=== PATIENT | female | born 1965 ===

== ENCOUNTER 2016-06-17 06:09 | Day surgery (SDC) | payer OTHER ==
[2016-06-17 06:50] VITALS: BMI 32.2
[2016-06-17] MEDS ORDERED: Simethicone 40 mg/0.6 ml Liquid (30 ml) ONE (07:50)
[2016-06-17] MEDS ORDERED: Lidocaine Hydrochloride 5 ML INJ ONE (07:52)
[2016-06-17] MEDS ORDERED: Propofol 10 mg/ml Inj (20 ML) ONE ×2 (07:52→08:13)
[2016-06-17] MEDS ORDERED: Lactated Ringer's 1,000 ML IV SCH (08:00)
--- NOTE | 2016-06-17 08:01 | CP.SDSHP ---
Same Day Surgery H & P - History Proposed Procedure: colonoscopy Pre-Op Diagnosis: constipation. diverticulosis. screening for colon cancer - Previous Medical/Surgical History Endocrine/Metabolic: Thyroid Disease, Diabetes - Allergies Allergies: Allergies No Known Allergies Allergy (Verified 06/17/16 06:50) - Current Medications Current Medications: see med list - Physical Exam General Appearance: NAD Mental Status: Alert & Oriented x3 Heart: WNL Lungs: WNL GI: WNL - {Optional Preform as Required} Abdomen: WNL - Impression Impression: 50 year old female with h/o DM, hypothyroidism here for evaluation of constipation, screening colonoscopy Pt. Evaluated Today:Candidate for Anesthesia & Procedure: Yes - Date & Time Date: 06/17/16 Time: 08:00 Short Stay Discharge - Short Stay Discharge Admitting Diagnosis/Reason for Visit: DIVERTICULOSIS / CONSTIPATION / BILE DUCT DILATION Disposition: HOME/ ROUTINE
[2016-06-19 15:18] VITALS: RESP 18
[2016-06-19 15:26] VITALS: BP 104/51; PULSE 62; TEMP 98; O2SAT 98
== END 2016-06-17 10:30 | disposition home or self-care (01) ==
LOC: C.ENDO 06:09
PROVIDERS: ATTEND Internal Medicine Gastroenterology
DX: Z12.11 Encounter for screening for malignant neoplasm of colon (principal); D12.2 Benign neoplasm of ascending colon; D12.4 Benign neoplasm of descending colon; K63.89 Other specified diseases of intestine; K64.8 Other hemorrhoids; E11.9 Type 2 diabetes mellitus without complications
CPT/HCPCS: 45380; 45381; 45385; 82948; 88305; J2704; J7120

== ENCOUNTER 2016-06-28 09:39 | Emergency (ER) | payer OTHER ==
[2016-06-28 09:39] VITALS: BMI 32.2
[2016-06-28 09:47] VITALS: BP 117/74; PULSE 68; RESP 16; TEMP 97.4; O2SAT 98
[2016-06-28 10:40] LABS: RBC URINE < 1 /hpf (0-3); URINE BILIRUBIN NEGATIVE (NEGATIVE); URINE BLOOD NEGATIVE (NEGATIVE); URINE COLOR Straw (YELLOW); URINE GLUCOSE (UA) NORMAL (Normal); URINE KETONE NEGATIVE (NEGATIVE); URINE LEUKOCYTE ESTERASE NEG Leu/uL (Negative); URINE PROTEIN NEGATIVE (NEGATIVE); URINE UROBILINOGEN NORMAL mg/dL (0.2-1.0); WBC URINE < 1 /hpf (0-5)
--- NOTE | 2016-06-28 11:04 | C.PDOC ---
History Of Present Illness 50 yr old female presents to the ED for evaluation of bilateral low back pain for the past 3 days. Patient states the pain constant, nonradiating, and worsens with movement and walking. Patient denies trauma/falls, fever/chills, abdominal pain, dysuria/hematuria, nausea/vomiting/diarrhea, urinary/bowel incontinence, rash, sensory changes in extremities, or leg weakness. Time Seen by Provider: 06/28/16 09:51 Chief Complaint (Nursing): Back Pain History Per: Patient History/Exam Limitations: no limitations Onset/Duration Of Symptoms: Days (3) Current Symptoms Are (Timing): Still Present Quality Of Discomfort: "Pain" Severity: Moderate Exacerbating Factor(s): Movement, Other (Walking) Past Medical History Reviewed: Historical Data, Nursing Documentation, Vital Signs Vital Signs: Last Vital Signs Temp 97.4 F L 06/28/16 09:46 Pulse 68 06/28/16 09:46 Resp 16 06/28/16 09:46 BP 117/74 06/28/16 09:46 Pulse Ox 98 06/28/16 11:40 - Medical History PMH: Arthritis, Diabetes, Fractures (LEFT TIBIA), Hyperthyroidism, Hypothyroidism Surgical History: Cholecystectomy Family History: States: No Known Family Hx - Social History Hx Tobacco Use: No Hx Alcohol Use: No Hx Substance Use: No - Immunization History Hx Tetanus Toxoid Vaccination: No Hx Influenza Vaccination: No Hx Pneumococcal Vaccination: No Review Of Systems Except As Marked, All Systems Reviewed And Found Negative. Constitutional: Negative for: Fever, Chills Cardiovascular: Negative for: Chest Pain Respiratory: Negative for: Cough, Shortness of Breath Gastrointestinal: Negative for: Nausea, Vomiting, Abdominal Pain, Diarrhea Genitourinary: Negative for: Dysuria, Hematuria Musculoskeletal: Positive for: Back Pain (Bilateral low back pain) Skin: Negative for: Rash Physical Exam - Physical Exam Appears: Well, Non-toxic, In Acute Distress (Mild pain ) Skin: Warm, Dry, No Rash Head: Atraumatic, Normacephalic Eye(s): bilateral: Normal Inspection Oral Mucosa: Moist Neck: Normal, Normal ROM, No Midline Cervical Tenderness, No Paracervical Tenderness, No Step Off Deformity, Supple Cardiovascular: Rhythm Regular Respiratory: Normal Breath Sounds, No Rales, No Rhonchi, No Wheezing Gastrointestinal/Abdominal: Normal Exam, Bowel Sounds, Soft, No Tenderness, No Rebound Back: Normal Inspection, No CVA Tenderness, No Vertebral Tenderness, No Paraspinal Tenderness, Other ( icy hot patch on lumbar area) Extremity: Normal ROM, No Deformity, No Swelling Extremity: Bilateral: Atraumatic, Normal Color And Temperature, Normal ROM Pulses: Left Dorsalis Pedis: Normal, Right Dorsalis Pedis: Normal Neurological/Psych: Oriented x3, Normal Motor, Normal Sensation Gait: Steady ED Course And Treatment O2 Sat by Pulse Oximetry: 98 (RA) Pulse Ox Interpretation: Normal Progress Note: Urinalysis, Upreg ordered and reviewed. Patient given IM Toradol and PO Flexeril. Reevaluation Time: 11:40 Reassessment Condition: Improved (Patient reassessed, is resting comfortably and states she feele better. Patient ambulating normally in the ED. She was given Rx for Naprosyn and Flexeril, and was instructed to follow up with PMD/ clinic in 1-2 days. Patient undertsands she should return to ED if symptoms worsen.) Disposition Counseled Patient/Family Regarding: Studies Performed, Diagnosis, Need For Followup, Rx Given - Disposition Referrals: [facility] [Outside] Disposition: HOME/ ROUTINE Disposition Time: 11:40 Condition: STABLE Prescriptions: Cyclobenzaprine [Cyclobenzaprine HCl] 10 mg PO BID PRN #12 tab PRN Reason: pain/muscle Naproxen [Naprosyn Tab] 375 mg PO BID PRN #20 tab PRN Reason: pain Instructions: Acute Low Back Pain (ED) Print Language: ROMANIAN - POA Present On Arrival: None - Clinical Impression Clinical Impression: Lumbar sprain - Scribe Statement The provider has reviewed the documentation as recorded by the Roney Baez Provider Attestation: All medical record entries made by the Roney were at my direction and personally dictated by me. I have reviewed the chart and agree that the record accurately reflects my personal performance of the history, physical exam, medical decision making, and the department course for this patient. I have also personally directed, reviewed, and agree with the discharge instructions and disposition.
== END 2016-06-28 12:05 | disposition home or self-care (01) ==
LOC: C.ER 09:39
DX: S33.5XXA Sprain of ligaments of lumbar spine, initial encounter (principal); X58.XXXA Exposure to other specified factors, initial encounter; Y93.9 Activity, unspecified; Y92.9 Unspecified place or not applicable

== ENCOUNTER 2016-10-16 08:46 | Day surgery (SDC) | payer OTHER ==
[2016-10-09 08:58] VITALS: BMI 27.4
[2016-10-16] MEDS ORDERED: Bupivacaine-Epi 0.25%-1:200,000 PF Inj ONE ×2 (09:46→10:03)
[2016-10-16] MEDS ORDERED: Lidocaine 1% Inj (20ml) ONE ×2 (09:46→10:04)
[2016-10-16] MEDS ORDERED: ceFAZolin IV 1 gm in Dextrose 0 GM/0 ML BAG IVPB ONE (09:46)
[2016-10-16] MEDS ORDERED: ceFAZolin IV 2 gm in Dextrose 1 GM/50 ML BAG IVPB ONE (10:03)
[2016-10-16] MEDS ORDERED: Propofol 10 mg/ml Inj (20 ML) ONE (11:06)
[2016-10-16] MEDS ORDERED: Phenylephrine 10 mg/ml Inj ONE (11:23)
[2016-10-16] MEDS ORDERED: Neostigmine Methylsulfate 3mg/3ml Syringe IV ONE (12:02)
--- NOTE | 2016-10-16 12:58 | PCM.SURG1 ---
Surgeon's Initial Post Op Note - Surgeon's Notes Surgeon: Dr. Lamb Street Light Mechanic: Dr. Huang PGY3, Cinthya RINCON Type of Anesthesia: General Endo, Local Pre-Operative Diagnosis: umbilical incisional hernia Operative Findings: see op report Post-Operative Diagnosis: umbilical incisional hernia Operation Performed: laparoscopic umbilical incisional hernia repair with primary closure and mesh Specimen/Specimens Removed: hernia contents Estimated Blood Loss: EBL {In ML}: 10 Blood Products Given: N/A Drains Used: No Drains Post-Op Condition: Good Date of Surgery/Procedure: 10/16/16 Time of Surgery/Procedure: 12:58
[2016-10-16] MEDS ORDERED: Oxycodone/Acetaminophen 5/325 mg Tab PO PRN (12:59)
[2016-10-16] MEDS ORDERED: HYDROmorphone 0.5 mg/0.5 ml ISec IVP PRN (13:21)
[2016-10-16] MEDS ORDERED: Lactated Ringer's 1,000 ML IV ONE (14:20)
[2016-10-16 17:49] VITALS: BP 103/58; PULSE 67; RESP 20; TEMP 97.8; O2SAT 99
--- NOTE | 2016-10-17 04:40 | OP ---
PROCEDURE DATE: 10/16/2016 PREOPERATIVE DIAGNOSIS: Umbilical hernia. POSTOPERATIVE DIAGNOSES: 1. Incarcerated umbilical hernia. 2. Post infectious adhesion. PROCEDURE: 1. Laparoscopic incarcerated umbilical hernia repair with mesh. 2. Laparoscopic lysis of adhesion extensive. SURGEON: Dr. Lamb. CAR SALES REPRESENTATIVE: MCKENZIE Rodriguez and Sindhu Huang, PGY-3 resident. TYPE OF ANESTHESIA: General endotracheal tube anesthesia. ESTIMATED BLOOD LOSS: Around 10 mL. DRAINS: None. PATHOLOGY: Hernial sac and content was sent for pathology. COMPLICATIONS: None. INTRAOPERATIVE FINDINGS: 1. The patient had incarcerated omentum in the umbilical hernial site. 2. The patient also had lot of adhesions surrounding umbilicus as well as right upper quadrant due to the previous laparoscopic cholecystectomy. DESCRIPTION OF PROCEDURE: On intraoperative steps, this 50-year-old female who underwent laparoscopic cholecystectomy by other surgeon and the patient had umbilical hernia at umbilical incision port site and the patient was consented for the laparoscopic umbilical hernia repair with mesh, brought to the OR placed supine on the operating table. After induction of anesthesia, abdomen was prepped and draped in usual sterile fashion and left upper quadrant 5 mm incision was made and using Visiport technique peritoneal cavity was entered, pneumo was created and another 8 mm and 5 mm port was placed in left flank and left lower quadrant and grasper and dissector was introduced. The incarcerated omentum of large size as well as postoperative adhesion was lysed and omentum was reduced back into the peritoneal cavity and the dissection was continued to do lysis of adhesions surrounding the intraabdominal wall and after that hernial sac and content was resected and it was sent to the table for pathology and hernial defect was closed with transfascial #2 Ethibond suture and 9 cm mesh was placed and mesh was implanted with tacker and after proper implantation of the mesh, specimen was sent to the table for pathology and all the ports were taken out under vision, pneumo was deflated. The transfascial wound site was closed in 2 layers with 3-0 Vicryl and 4-0 Monocryl. All the port site was closed with 4-0 Monocryl and dry sterile dressing was applied. The patient tolerated the procedure well. Count of instrument was correct. There was no apparent complications. Alejo Lamb MD [facility]
== END 2016-10-16 17:55 | disposition home or self-care (01) ==
LOC: C.SDS 08:46
PROVIDERS: ATTEND Surgery Surgical Critical Care
DX: K42.0 Umbilical hernia with obstruction, without gangrene (principal); K43.0 Incisional hernia with obstruction, without gangrene
CPT/HCPCS: 49653; 82948; 88302; 88305; C1781; J0690; J1170; J2370; J2405; J2704; J2710; J3010; J7120

== ENCOUNTER 2017-07-05 10:35 | Emergency (ER) | payer OTHER ==
[2017-07-05 10:43] VITALS: BMI 32.8
[2017-07-05 12:15] LABS: BASO % 0.4 % (0.0-2.0); EOS # 0.1 K/uL (0.0-0.7); EOS % 0.8 % (0.0-4.0); HEMOGLOBIN 13.8 g/dL (11.0-16.0); LYMPH # 1.4 K/uL (1.0-4.3); LYMPH % 20.3 % (20.0-40.0); MEAN CELL VOLUME 89.6 fL (81.0-99.0); MEAN CORPUSCULAR HEMOGLOBIN 30.4 pg (27.0-31.0); MEAN PLATELET VOLUME 8.5 fL (7.2-11.7); MONO # 0.9 K/uL (0.0-0.8); MONO % 13.5 % (0.0-10.0); NEUT # 4.4 K/uL (1.8-7.0); RBC 4.55 Mil/uL (3.80-5.20); RED CELL DISTRIBUTION WIDTH 13.2 % (11.5-14.5); WHITE BLOOD COUNT 6.8 K/uL (4.8-10.8)
[2017-07-05 12:17] LABS: ALBUMIN 3.9 g/dL (3.5-5.0); ALT/SGPT 67 U/L (9-52); AST/SGOT 75 U/L (14-36); BLOOD UREA NITROGEN 5 mg/dL (7-17); CALCIUM 8.7 mg/dl (8.6-10.4); GFR AFRICAN-AMERICAN > 60; GFR NON-AFRICAN AMERICAN > 60
[2017-07-05 12:26] LABS: CK-MB 0.33 ng/mL (0.0-3.38)
[2017-07-05 12:38] LABS: INR 1.2; PROTHROMBIN TIME 13.6 SECONDS (9.7-12.2)
--- NOTE | 2017-07-05 12:59 | C.PDOC ---
History Of Present Illness 51-year-old female, PMhx includes Diabetes and hypothyroidism, presents to the emergence department with complaints of chest pain, cough and subjective fever, Patient denies nausea/vomiting, diarrhea, back pain, headache, shortness of breath or any other associated symptoms. No other complaints at this time. Time Seen by Provider: 07/05/17 10:51 Chief Complaint (Nursing): Chest Pain History Per: Patient History/Exam Limitations: no limitations Past Medical History Reviewed: Historical Data, Nursing Documentation, Vital Signs Vital Signs: Last Vital Signs Temp 98.8 F 07/05/17 16:22 Pulse 86 07/05/17 16:22 Resp 14 07/05/17 16:22 BP 126/71 07/05/17 16:22 Pulse Ox 95 07/05/17 16:22 - Medical History PMH: Arthritis, Diabetes, Fractures (LEFT TIBIA), Hyperthyroidism, Hypothyroidism Surgical History: Cholecystectomy Family History: States: No Known Family Hx - Social History Hx Tobacco Use: No Hx Alcohol Use: No Hx Substance Use: No - Immunization History Hx Tetanus Toxoid Vaccination: No Hx Influenza Vaccination: No Hx Pneumococcal Vaccination: No Review Of Systems Constitutional: Positive for: Fever Cardiovascular: Positive for: Chest Pain Respiratory: Positive for: Cough. Negative for: Sputum Gastrointestinal: Negative for: Nausea, Vomiting Musculoskeletal: Negative for: Back Pain Skin: Negative for: Rash Neurological: Negative for: Weakness, Numbness, Headache, Dizziness Physical Exam - Physical Exam Appears: Well, Non-toxic, No Acute Distress Skin: Warm, Dry, No Rash Head: Normacephalic Eye(s): bilateral: PERRL Nose: Normal Oral Mucosa: Moist Lips: Normal Appearing Neck: Normal ROM Cardiovascular: Rhythm Regular, No Murmur Respiratory: No Decreased Breath Sounds, No Accessory Muscle Use, No Wheezing Extremity: Normal ROM, No Deformity, No Swelling Neurological/Psych: Oriented x3, Normal Speech ED Course And Treatment - Laboratory Results Result Diagrams: 07/05/17 11:57 07/05/17 11:57 ECG: Interpreted By Me, Viewed By Me ECG Rhythm: Sinus Rhythm ECG Interpretation: No Acute Changes Rate From EC O2 Sat by Pulse Oximetry: 94 (RA) Progress Note: Case was d/w Dr. Liz who accepted patient to [facility] for observation. Disposition - Disposition Disposition: HOSPITALIZED Disposition Time: 14:23 Condition: FAIR - Clinical Impression Clinical Impression: Chest pain - Scribe Statement The provider has reviewed the documentation as recorded by the Nahumibe Aakash Parson All medical record entries made by the Nahumibe were at my direction and personally dictated by me. I have reviewed the chart and agree that the record accurately reflects my personal performance of the history, physical exam, medical decision making, and the department course for this patient. I have also personally directed, reviewed, and agree with the discharge instructions and disposition. Decision To Admit - Pt Status Changed To: Hospital Disposition Of: Observation - . Bed Request Type: Telemetry Admitting Physician: Jaswant Keith Patient Diagnosis: Chest pain
--- NOTE | 2017-07-05 14:27 | RAD ---
HISTORY: cough/fever/chest soreness COMPARISON: Comparison is made to 10/02/2016 TECHNIQUE: Chest PA and lateral FINDINGS: LUNGS: Prominent lung markings are noted. No evidence of focal infiltrate or consolidation in the lungs. PLEURA: No significant pleural effusion identified. No pneumothorax apparent. CARDIOVASCULAR: Normal. OSSEOUS STRUCTURES: No significant abnormalities. VISUALIZED UPPER ABDOMEN: Normal. OTHER FINDINGS: None. IMPRESSION: No radiographic evidence of pneumonia or pleural effusion.
--- NOTE | 2017-07-05 14:45 | CP.PCM.HP ---
<Georgina Gill - Last Filed: 07/05/17 15:23> History of Present Illness - History of Present Illness History of Present Illness: CC - "Chest pain" HPI - Patient is a 51 year old female with a past medical history of DM II, hypothyroidism, diverticulosis, and elevated LFTs (worked up outpatient), who presents to the ED complaining of chest pain, cough, and fever. Patient says it started yesterday and describes the chest pain as a dull pressure like pain across her whole chest, radiating to both arms and her entire back. Patient says she developed the dry cough shortly after and began feeling generalized body aches. Patient says before this all started she had a sore throat that began yesterday morning. Of note, patient is living with her children which she says are complaining of similar symptoms. Patient rates the chest pain as an 8/ 10. Patient says she took nyquil and excedrin last night and went to sleep but still felt poorly when she woke up this morning so she decided to come to the ED. Patient admits to associated nasal congestion, mild bilateral ear pain, night sweats, generalized fatigue/weakness, right sided headache, palpitations, and shortness of breath. Of note she says she had a rash on her left leg but it went away 5 days ago. She denies dizziness, changes in vision/hearing, dysphagia , abdominal pain, nausea, vomiting, diarrhea, constipation, hematochezia, dysuria, urinary frequency, lower extremity swelling, easy bruising/bleeding, recent travel, and changes in weight. Patient's last visit at the clinic was 06/05/16. Patient is with good follow up. Next visit scheduled for 07/31/17 at 9:[address] Bowden. She has a history of transaminitis and has seen GI for workup. Hepatitis was negative and abd MRI 05/31/16 was normal. Patient is currently being worked up outpatient for arthritis. PMHx - DM, hypothyroidism, transaminitis, hx diverticulosis Meds - Metformin 1000mg PO BID, Synthroid 100mcg PO daily, Glimepride 2mg PO daily Allergies - NKDA Surgeries - cholecystectomy 1998, hernia repair 2016 Fam hx - father had DM, mother had DM Social - denies drug, tobacco, or alcohol use BENCH HAND - last pap/mammogram 01/2017 normal Patient had colonoscopy 05/2016 - biposies negative, tubular adenoma found PMD - Dr. Leah Myles ([facility]) Present on Admission - Present on Admission Any Indicators Present on Admission: No Review of Systems - Review of Systems All systems: reviewed and no additional remarkable complaints except Past Patient History - Infectious Disease Hx of Infectious Diseases: None - Past Medical History & Family History Past Medical History?: Yes - Past Social History Smoking Status: Never Smoked - CARDIAC Hx Cardiac Disorders: Yes Hx Hypotension: Yes - PULMONARY Hx Respiratory Disorders: No - NEUROLOGICAL Hx Transient Ischemic Attacks (TIA): No - HEENT Hx HEENT Problems: No - RENAL Hx Chronic Kidney Disease: No - ENDOCRINE/METABOLIC Hx Hyperthyroidism: Yes Hx Hypothyroidism: Yes - HEMATOLOGICAL/ONCOLOGICAL Hx Blood Disorders: No - INTEGUMENTARY Hx Dermatological Problems: No - MUSCULOSKELETAL/RHEUMATOLOGICAL Hx Arthritis: Yes Hx Fractures: Yes (LEFT TIBIA) - GASTROINTESTINAL Hx Gastrointestinal Disorders: Yes Hx Fatty Liver Disease: Yes - GENITOURINARY/GYNECOLOGICAL Hx Genitourinary Disorders: No - PSYCHIATRIC Hx Substance Use: No - SURGICAL HISTORY Hx Cholecystectomy: Yes - ANESTHESIA Hx Anesthesia: Yes Hx Anesthesia Reactions: No Hx Malignant Hyperthermia: No Meds Allergies/Adverse Reactions: Allergies Allergy/AdvReac Type Severity Reaction Status Date / Time No Known Allergies Allergy Verified 07/05/17 10:41 Physical Exam - Constitutional Appears: Non-toxic, No Acute Distress - Head Exam Head Exam: ATRAUMATIC, NORMAL INSPECTION - Eye Exam Eye Exam: EOMI, PERRL Pupil Exam: NORMAL ACCOMODATION - ENT Exam ENT Exam: Mucous Membranes Moist - Respiratory Exam Respiratory Exam: Clear to Auscultation Bilateral, NORMAL BREATHING PATTERN. absent: Respiratory Distress - Cardiovascular Exam Cardiovascular Exam: REGULAR RHYTHM, +S1, +S2. absent: Irregular Rhythm, JVD, Systolic Murmur - GI/Abdominal Exam GI & Abdominal Exam: Normal Bowel Sounds, Soft. absent: Distended, Firm, Guarding, Tenderness - Extremities Exam Extremities exam: Positive for: normal inspection. Negative for: calf tenderness, pedal edema - Back Exam Back exam: NORMAL INSPECTION. absent: CVA tenderness (L), CVA tenderness (R), paraspinal tenderness - Neurological Exam Neurological exam: Alert, CN II-XII Intact, Normal Gait, Oriented x3 - Psychiatric Exam Psychiatric exam: Normal Affect, Normal Mood - Skin Skin Exam: Dry, Intact, Normal Color, Warm Results - Vital Signs Recent Vital Signs: Last Vital Signs Temp 99.1 F 07/05/17 12:49 Pulse 76 07/05/17 12:49 Resp 20 07/05/17 12:49 BP 106/69 07/05/17 12:49 Pulse Ox 94 L 07/05/17 14:23 - Labs Result Diagrams: 07/05/17 11:57 07/05/17 11:57 Labs: Laboratory Results - last 24 hr 07/05/17 07/05/17 07/05/17 11:57 11:57 11:57 WBC 6.8 RBC 4.55 Hgb 13.8 Hct 40.8 MCV 89.6 MCH 30.4 MCHC 34.0 RDW 13.2 Plt Count 182 MPV 8.5 Neut % (Auto) 65.0 Lymph % (Auto) 20.3 Bartholomew % (Auto) 13.5 H Eos % (Auto) 0.8 Baso % (Auto) 0.4 Neut # (Auto) 4.4 Lymph # (Auto) 1.4 Bartholomew # (Auto) 0.9 H Eos # (Auto) 0.1 Baso # (Auto) 0.0 PT 13.6 H INR 1.2 APTT 34 D-Dimer, Quantitative 216 Sodium 138 Potassium 4.3 Chloride 98 Carbon Dioxide 26 Anion Gap 18 BUN 5 L Creatinine 0.6 L Est GFR ( Amer) > 60 Est GFR (Non-Af Amer) > 60 Random Glucose 285 H Calcium 8.7 Total Bilirubin 0.4 AST 75 H D ALT 67 H D Alkaline Phosphatase 108 Total Creatine Kinase 53 CK-MB (Mass) 0.33 Total Protein 8.1 Albumin 3.9 Globulin 4.1 H Albumin/Globulin Ratio 1.0 Assessment & Plan - Assessment and Plan (Free Text) Assessment: Upper respiratory Infection f/u influenza Patient to be discharged with Tamiflu Body aches/chest pain EKG - NSR with no acute changes Full dose asa given in the ED Troponin negative, f/u second DDimer ordered by ED negative Diabetes Accuchecks ACHS Insulin sliding scale for coverage Continue metformin 1000mg PO BID Contine Gimpiperide 2mg PO daily hypoglycemia protocol Last HbA1c 8 (05/19/17) Hypothyroid Last TSH 2.12, T 4 0.61 (2/26/18) Continue Synthroid 100mcg PO daily <Mike Cain - Last Filed: 07/05/17 15:52> Results - Vital Signs Recent Vital Signs: Last Vital Signs Temp 98.6 F 07/05/17 14:30 Pulse 85 07/05/17 14:30 Resp 19 07/05/17 14:30 BP 114/54 L 07/05/17 14:30 Pulse Ox 95 07/05/17 14:30 - Labs Result Diagrams: 07/05/17 11:57 07/05/17 11:57 Labs: Laboratory Results - last 24 hr 07/05/17 07/05/17 07/05/17 11:57 11:57 11:57 WBC 6.8 RBC 4.55 Hgb 13.8 Hct 40.8 MCV 89.6 MCH 30.4 MCHC 34.0 RDW 13.2 Plt Count 182 MPV 8.5 Neut % (Auto) 65.0 Lymph % (Auto) 20.3 Bartholomew % (Auto) 13.5 H Eos % (Auto) 0.8 Baso % (Auto) 0.4 Neut # (Auto) 4.4 Lymph # (Auto) 1.4 Bartholomew # (Auto) 0.9 H Eos # (Auto) 0.1 Baso # (Auto) 0.0 PT 13.6 H INR 1.2 APTT 34 D-Dimer, Quantitative 216 Sodium 138 Potassium 4.3 Chloride 98 Carbon Dioxide 26 Anion Gap 18 BUN 5 L Creatinine 0.6 L Est GFR ( Amer) > 60 Est GFR (Non-Af Amer) > 60 Random Glucose 285 H Calcium 8.7 Total Bilirubin 0.4 AST 75 H D ALT 67 H D Alkaline Phosphatase 108 Total Creatine Kinase 53 CK-MB (Mass) 0.33 Troponin I < 0.0120 Total Protein 8.1 Albumin 3.9 Globulin 4.1 H Albumin/Globulin Ratio 1.0 Attending/Attestation - Attestation I have personally seen and examined this patient.: Yes I have fully participated in the care of the patient.: Yes I have reviewed all pertinent clinical information: Yes Notes (Text): Patient seen and examined along with the resident. Agree with above Presents with atypical chest pain, possibly pleuritic in nature Constitutional symptoms of rhinorrhea, congestion and sore throat. Sick contacts with family members at home. Will send for Rapid Influenza A/B CXR with napd No prior cardiac history. Compliant to her DM medications. Risk factors including DM and post-menopausal. No ischemic changes appreciated on the ekg. Troponin negative x1, will f/u on second troponin. If negative, will discharge home and outpt f/u with clinic this coming week.
--- NOTE | 2017-07-05 15:41 | CP.PCM.DIS ---
Provider - Provider Date of Admission: 07/05/17 14:22 Attending physician: Jaswant Keith DO Primary care physician: Dr. Myles Consults: none Time Spent in preparation of Discharge (in minutes): 35 Diagnosis - Discharge Diagnosis (1) Upper respiratory infection Status: Acute (2) Influenza Status: Acute Hospital Course - Lab Results Lab Results: Most Recent Lab Values WBC 6.8 K/uL (4.8-10.8) 07/05/17 11:57 RBC 4.55 Mil/uL (3.80-5.20) 07/05/17 11:57 Hgb 13.8 g/dL (11.0-16.0) 07/05/17 11:57 Hct 40.8 % (34.0-47.0) 07/05/17 11:57 MCV 89.6 fL (81.0-99.0) 07/05/17 11:57 MCH 30.4 pg (27.0-31.0) 07/05/17 11:57 MCHC 34.0 g/dL (33.0-37.0) 07/05/17 11:57 RDW 13.2 % (11.5-14.5) 07/05/17 11:57 Plt Count 182 K/uL (130-400) 07/05/17 11:57 MPV 8.5 fL (7.2-11.7) 07/05/17 11:57 Neut % (Auto) 65.0 % (50.0-75.0) 07/05/17 11:57 Lymph % (Auto) 20.3 % (20.0-40.0) 07/05/17 11:57 Burke % (Auto) 13.5 % (0.0-10.0) H 07/05/17 11:57 Eos % (Auto) 0.8 % (0.0-4.0) 07/05/17 11:57 Baso % (Auto) 0.4 % (0.0-2.0) 07/05/17 11:57 Neut # (Auto) 4.4 K/uL (1.8-7.0) 07/05/17 11:57 Lymph # (Auto) 1.4 K/uL (1.0-4.3) 07/05/17 11:57 Burke # (Auto) 0.9 K/uL (0.0-0.8) H 07/05/17 11:57 Eos # (Auto) 0.1 K/uL (0.0-0.7) 07/05/17 11:57 Baso # (Auto) 0.0 K/uL (0.0-0.2) 07/05/17 11:57 PT 13.6 SECONDS (9.7-12.2) H 07/05/17 11:57 INR 1.2 07/05/17 11:57 APTT 34 SECONDS (21-34) 07/05/17 11:57 D-Dimer, Quantitative 216 ng/mlDDU (0-243) 07/05/17 11:57 Sodium 138 mmol/L (132-148) 07/05/17 11:57 Potassium 4.3 mmol/L (3.6-5.2) 07/05/17 11:57 Chloride 98 mmol/L (98-107) 07/05/17 11:57 Carbon Dioxide 26 mmol/L (22-30) 07/05/17 11:57 Anion Gap 18 (10-20) 07/05/17 11:57 BUN 5 mg/dL (7-17) L 07/05/17 11:57 Creatinine 0.6 mg/dL (0.7-1.2) L 07/05/17 11:57 Est GFR ( Amer) > 60 07/05/17 11:57 Est GFR (Non-Af Amer) > 60 07/05/17 11:57 Random Glucose 285 mg/dL (65-105) H 07/05/17 11:57 Calcium 8.7 mg/dl (8.6-10.4) 07/05/17 11:57 Total Bilirubin 0.4 mg/dL (0.2-1.3) 07/05/17 11:57 AST 75 U/L (14-36) H D 07/05/17 11:57 ALT 67 U/L (9-52) H D 07/05/17 11:57 Alkaline Phosphatase 108 U/L (38-126) 07/05/17 11:57 Total Creatine Kinase 53 U/L (30-135) 07/05/17 11:57 CK-MB (Mass) 0.33 ng/mL (0.0-3.38) 07/05/17 11:57 Troponin I < 0.0120 ng/mL (0.00-0.120) 07/05/17 11:57 Total Protein 8.1 g/dL (6.3-8.3) 07/05/17 11:57 Albumin 3.9 g/dL (3.5-5.0) 07/05/17 11:57 Globulin 4.1 gm/dL (2.2-3.9) H 07/05/17 11:57 Albumin/Globulin Ratio 1.0 (1.0-2.1) 07/05/17 11:57 - Hospital Course Hospital Course: PMHx - DM, hypothyroidism, transaminitis, hx diverticulosis Meds - Metformin 1000mg PO BID, Synthroid 100mcg PO daily, Glimepride 2mg PO daily Allergies - NKDA Surgeries - cholecystectomy 1998, hernia repair 2016 Fam hx - father had DM, mother had DM Social - denies drug, tobacco, or alcohol use 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 Leah Myles ([facility]) Patient is a 51 year old female with a past medical history of DM II, hypothyroidism, diverticulosis, and elevated LFTs (worked up outpatient), who presents to the ED complaining of chest pain, cough, and fever. Patient says it started yesterday and describes the chest pain as a dull pressure like pain across her whole chest, radiating to both arms and her entire back. Patient says she developed the dry cough shortly after and began feeling generalized body aches. Patient says before this all started she had a sore throat that began yesterday morning. Of note, patient is living with her children which she says are complaining of similar symptoms. Patient rates the chest pain as an 8/ 10. Patient says she took nyquil and excedrin last night and went to sleep but still felt poorly when she woke up this morning so she decided to come to the ED. Patient admits to associated nasal congestion, mild bilateral ear pain, night sweats, generalized fatigue/weakness, right sided headache, palpitations, and shortness of breath. Of note she says she had a rash on her left leg but it went away 5 days ago. She denies dizziness, changes in vision/hearing, dysphagia , abdominal pain, nausea, vomiting, diarrhea, constipation, hematochezia, dysuria, urinary frequency, lower extremity swelling, easy bruising/bleeding, recent travel, and changes in weight. Patient's last visit at the clinic was 06/05/16. Patient is with good follow up. Next visit scheduled for 07/31/17 at 9:[address] Bowden. She has a history of transaminitis and has seen GI for workup. Hepatitis was negative and abd MRI 05/31/16 was normal. Patient is currently being worked up outpatient for arthritis. No indication for hospital admission. Influenza Patient + on rapid flu Patient to be discharged with Tamiflu Body aches/chest pain EKG - NSR with no acute changes Full dose asa given in the ED Troponin negative x 2 DDimer ordered by ED negative Diabetes Accuchecks ACHS Insulin sliding scale for coverage Continue metformin 1000mg PO BID Contine Gimpiperide 2mg PO daily hypoglycemia protocol Last HbA1c 8 (05/19/17) Hypothyroid Last TSH 2.12, T 4 0.61 (05/19/17) Continue Synthroid 100mcg PO daily Discharge Exam - Head Exam Head Exam: ATRAUMATIC, NORMAL INSPECTION - Eye Exam Eye Exam: EOMI, PERRL Pupil Exam: NORMAL ACCOMODATION - ENT Exam ENT Exam: Mucous Membranes Moist - Respiratory Exam Respiratory Exam: NORMAL BREATHING PATTERN - Cardiovascular Exam Cardiovascular Exam: REGULAR RHYTHM - GI/Abdominal Exam GI & Abdominal Exam: Normal Bowel Sounds, Soft. absent: Distended, Firm, Guarding, Tenderness - Extremities Exam Extremities exam: calf tenderness - Back Exam Back exam: NORMAL INSPECTION - Neurological Exam Neurological exam: Alert, Oriented x3 - Psychiatric Exam Psychiatric exam: Normal Affect, Normal Mood Discharge Plan - Discharge Medications Prescriptions: Oseltamivir Phosphate [Tamiflu] 75 mg PO BID #14 capsule - Follow Up Plan Condition: FAIR Disposition: HOME/ ROUTINE Additional Instructions: Patient is to follow up with her primary care doctor within one week or if symptoms do not improve. Tamiflu was sent to the patient's preferred pharmacy. She is to take this twice a day for 7 days. All instructions explained to the patient and she agrees. Referrals: [facility] at [facility] [Outside]
[2017-07-05 16:17] LABS: CK-MB < 0.22 ng/mL (0.0-3.38)
[2017-07-05 16:23] VITALS: BP 126/71; PULSE 86; RESP 14; TEMP 98.8
[2017-07-05 16:35] VITALS: O2SAT 94
[2017-07-06] MEDS ORDERED: Levothyroxine 100 MCG TAB PO SCH (06:30)
[2017-07-06] MEDS ORDERED: Enoxaparin 40 mg Syringe SC SCH (10:00)
== END 2017-07-05 16:43 | disposition home or self-care (01) ==
LOC: C.ER 10:35 → C.9E 14:22 → UNDOADMOB 14:22 → C.9E 15:12 → C.6T 15:12 → C.9E 16:08
DX: R07.9 Chest pain, unspecified (principal); J11.1 Influenza due to unidentified influenza virus with other respiratory manifestations; E11.9 Type 2 diabetes mellitus without complications; Z79.84 Long term (current) use of oral hypoglycemic drugs; R74.0 Nonspecific elevation of levels of transaminase and lactic acid dehydrogenase [LDH]

== ENCOUNTER 2018-04-05 14:18 | Emergency (ER) | payer SELFPAY ==
[2018-04-05 14:18] VITALS: BMI 32.5
[2018-04-05 15:02] VITALS: RESP 18
--- NOTE | 2018-04-05 15:54 | C.PDOC ---
History Of Present Illness 52 year old female presents to the emergency department with complaints of productive cough (yellow sputum) and congestion for the last two weeks. Patient denies fever, chills, and tobacco use. HPI: Influenza Time Seen by Provider: 04/05/18 15:05 Chief Complaint: Cough, Cold, Congestion History Per: Patient Exam Limitations: no limitations Onset/Duration Of Symptoms: Other (two weeks) Symptoms include: cough, nasal congestion. denies: fever Past Medical History Reviewed: Historical Data, Nursing Documentation, Vital Signs Vital Signs: Last Vital Signs Temp 98.1 F 04/05/18 15:00 Pulse 63 04/05/18 15:00 Resp 18 04/05/18 15:00 BP 122/72 04/05/18 15:00 Pulse Ox 98 04/05/18 15:00 - Medical History PMH: Arthritis, Diabetes, Fractures (LEFT TIBIA), Hyperthyroidism, Hypothyroidism Denies: Colonic Polyps, Chronic Kidney Disease, TIA Surgical History: Cholecystectomy Denies: Endoscopy Family History: States: Unknown Family Hx - Social History Hx Tobacco Use: No Hx Alcohol Use: No Hx Substance Use: No - Immunization History Hx Tetanus Toxoid Vaccination: No Hx Influenza Vaccination: No Hx Pneumococcal Vaccination: No Review Of Systems Except As Marked, All Systems Reviewed And Found Negative. ENT: Positive for: Nose Congestion Respiratory: Positive for: Cough, Sputum Physical Exam - Physical Exam Appears: Well, Non-toxic, No Acute Distress Skin: Normal Color, Warm, Dry Head: Atraumatic, Normacephalic Eye(s): bilateral: Normal Inspection, PERRL, EOMI Nose: Normal Oral Mucosa: Moist Throat: Normal, No Erythema, No Exudate Neck: Normal, Supple Chest: Symmetrical, No Tenderness Cardiovascular: Rhythm Regular, No Murmur Respiratory: Normal Breath Sounds, No Rales, No Rhonchi, No Wheezing Neurological/Psych: Oriented x3, Normal Speech, Normal Cognition Medical Decision Making Medical Decision Making: Plan: Motrin 600mg PO Zithromax 500mg PO Assessment: Bronchitis - ECG O2 Sat by Pulse Oximetry: 98 (RA) Pulse Ox Interpretation: Normal Disposition Counseled Patient/Family Regarding: Diagnosis, Need For Followup - Disposition Referrals: [facility] [Outside] Disposition: HOME/ ROUTINE Disposition Time: 15:52 Condition: STABLE Additional Instructions: follow up with your doctor within 2 days call to make an appointment take medications as prescribed return to ER if symptoms worsens or progress Prescriptions: Azithromycin [Zithromax] 250 mg PO DAILY #4 tab Benzonatate [Tessalon Perles] 100 mg PO BID PRN #14 tab PRN Reason: Cough Naproxen [Naprosyn] 500 mg PO BID PRN #16 tab PRN Reason: Pain, Moderate (4-7) Instructions: Acute Bronchitis Forms: Gen Discharge Inst Jamaican, [facility] (Jamaican) Print Language: AMHARIC - Clinical Impression Clinical Impression: Bronchitis - Scribe Statement The provider has reviewed the documentation as recorded by the Scribe (Vipin Aj) Provider Attestation: All medical record entries made by the Scribe were at my direction and personally dictated by me. I have reviewed the chart and agree that the record accurately reflects my personal performance of the history, physical exam, medi ranaldo decision making, and the department course for this patient. I have also personally directed, reviewed, and agree with the discharge instructions and disposition.
[2018-04-05 16:25] VITALS: BP 115/74; PULSE 65; TEMP 98.5
[2018-04-05 18:01] VITALS: O2SAT 98
== END 2018-04-05 16:25 | disposition home or self-care (01) ==
LOC: C.ER 14:18
DX: J40 Bronchitis, not specified as acute or chronic (principal)

== ENCOUNTER → 2018-06-06 | Outpatient (CLI) | payer SELFPAY | LOC: C.LAB 08:32 | DX: Z13.6 Encounter for screening for cardiovascular disorders (principal) ==

== ENCOUNTER 2018-07-25 08:22 | Outpatient (CLI) | payer SELFPAY | END 2018-07-25 08:23 | disposition home or self-care (01) | LOC: C.LAB 08:22 | DX: E03.9 Hypothyroidism, unspecified (principal) ==